=== PATIENT | male | born 1960 | race African-American/Black ===

== ENCOUNTER 2020-05-20 00:21 | Emergency (ER) | payer MEDICAID, OTHER ==
[~2020-05-20] VITALS: Ht 167.6 cm; Wt 70.3 kg
--- NOTE | 2020-05-20 00:22 | NUR ---
LEWIS Ambriz FROM [facility] FOR C/O SOB "THE WHOLE DAY" REC'D 10MG OF ALBUTEROL AND 0.5MG IM MANAGER SIX SIGMA; PT TO BED 5, PT PLACED ON MONITOR, +TACHYPNIC, HX OF ASTHMA. PENDING ER PROVIDER ROBERT
--- NOTE | 2020-05-20 00:25 | NUR ---
CALLED RT FOR BREATHING TREATMENT
[2020-05-20] MEDS ORDERED: DEXAMETHASONE SOD PHOSPHATE 4 MG/ML VIAL IM ONE (00:30)
[2020-05-20] MEDS ORDERED: ALBUTEROL FS 2.5 MG/0.5 ML VIAL.NEB NEB ONE (00:30)
[2020-05-20] MEDS ORDERED: IPRATROPIUM NEB FS 0.5 MG/2.5 ML AMPUL.NEB NEB ONE (00:30)
[2020-05-20] MEDS ORDERED: Magnesium 1GM/D5W 100ML PREMIX 200 ML IV ONE (00:32)
[2020-05-20] MEDS ORDERED: Magnesium 1GM/D5W 100ML PREMIX 100 ML IV ONE (00:38)
[2020-05-20] MEDS ORDERED: methylPREDNISolone SOD SUCC 125 MG/2ML VIAL ONE (00:38)
[2020-05-20] MEDS ORDERED: ALBUTEROL FS 2.5 MG/3 ML VIAL.NEB ONE (00:40)
[2020-05-20] MEDS ORDERED: IPRATROPIUM NEB FS 0.5 MG/2.5 ML AMPUL.NEB ONE (00:40)
[2020-05-20] MEDS ORDERED: methylPREDNISolone SOD SUCC 125 MG/2ML VIAL IV ONE (01:00)
[2020-05-20] MEDS ORDERED: AZITHROMYCIN 500 MG in IV D5W 250 ML IV ONE (01:00)
[2020-05-20] MEDS ORDERED: CEFTRIAXONE 1GM BAG (ER ONLY) 1 GM/50 ML PIGGYBACK IV ONE (01:00)
[2020-05-20 01:23] LABS: BASOPHILS # (AUTO) 0.1 /CMM (0.0-0.2); BASOPHILS % (AUTO) 0.5 % (0.0-2.0); EOSINOPHILS % (AUTO) 0.2 % (0.0-6.0); HEMATOCRIT 46 % (39-51); LYMPHOCYTES # (AUTO) 1.4 /CMM (0.8-4.8); MEAN CORPUSCULAR HGB CONC 33 g/dl (31.0-36.0); MEAN CORPUSCULAR VOLUME 89 fL (80-96); MONOCYTES # (AUTO) 1.2 /CMM (0.1-1.30); MONOCYTES % (AUTO) 6.6 % (2.0-12.0); NEUTROPHILS # (AUTO) 14.9 /CMM (1.8-8.9); NEUTROPHILS % (AUTO) 84.7 % (43.0-81.0); PLATELET COUNT (AUTO) 295 /CMM (150-450); RED BLOOD CELL COUNT(AUTO) 5.14 MIL/uL (4.5-6.0); WHITE BLOOD COUNT (AUTO) 17.6 K/uL (4.3-11.0)
[2020-05-20] MEDS ORDERED: AZITHROMYCIN 500 MG VIAL ONE (01:27)
[2020-05-20] MEDS ORDERED: CEFTRIAXONE 1GM BAG (ER ONLY) 50 ML IV ONE (01:27)
--- NOTE | 2020-05-20 01:37 | NUR ---
FF WITH LAB FOR CHEMISTRY.
[2020-05-20 01:41] LABS: CALCIUM, SERUM 8.6 mg/dL (8.5-10.1); CREATININE 1.1 mg/dL (0.6-1.3); POTASSIUM 4.5 mmol/L (3.5-5.1)
--- NOTE | 2020-05-20 02:19 | NUR ---
CALLED KE ROBIN
--- NOTE | 2020-05-20 02:26 | NUR ---
DENNIS SAEZ TALKING TO KE ROBIN MD REGARDING PT.
--- NOTE | 2020-05-20 03:43 | NUR ---
PT ACCEPTED BY DR. AGRAWAL PT WILL GO TO [facility] PHONE# FOR REPORT PRN [facility] [id number]
--- NOTE | 2020-05-20 03:43 | NUR ---
Micah arteaga in ED - 05/20/20 at 0845 by [place]LA PT ACCEPTED BY DR. AGRAWAL PT WILL GO TO [facility] PHONE# FOR REPORT [phone] [facility] TRAN[facility]ORT [id number]
--- NOTE | 2020-05-20 03:54 | NUR ---
Micah arteaga in ED - 05/20/20 at [address] BETTIE MAURER; PT'S PMD. PURCHASING OFFICER= DR. BIAN MERINO AT THIS TIME
[2020-05-20 04:01] VITALS: BP 106/60
--- NOTE | 2020-05-20 04:13 | NUR ---
REPORT GIVEN TO RICO TELLEZ AT [facility]
--- NOTE | 2020-05-20 04:27 | NUR ---
REPORT GIVEN TO [facility]
--- NOTE | 2020-05-20 04:44 | NUR ---
PT TRANSPORTED TO [facility] VIA PRIVATE AM[facility]ULANCE (PRN). PT REMAINS STABLE. VSS. REPORT GIVEN. ALL PAPERWORK GIVEN.
== END 2020-05-20 04:47 | disposition short-term general hospital (02) ==
LOC: ER 00:26
DX: J18.9 Pneumonia, unspecified organism (principal); Z20.828 Contact with and (suspected) exposure to other viral communicable diseases; F17.200 Nicotine dependence, unspecified, uncomplicated; J45.909 Unspecified asthma, uncomplicated; R94.31 Abnormal electrocardiogram [ECG] [EKG]; D72.829 Elevated white blood cell count, unspecified
CPT/HCPCS: 36415; 71045; 80048; 83605; 84484; 85025; 87040 ×2; 87426; 93005; 94640; 96365; 96367; 96368; 96374; 96375; 99285; C9803; J0456; J0696; J2930; J3475; J7060